=== PATIENT | female | born 1995 | race Caucasian/White ===

== ENCOUNTER 2025-02-27 08:04 | Emergency (ER) | payer OTHER ==
[~2025-02-27] VITALS: Ht 157.5 cm; Wt 81.4 kg
[2025-02-27] MEDS: IBUPROFEN 600 MG TABLET PO ONE (08:26)
[2025-02-27] MEDS: AMOX TR/POT CLAV 875 MG/125 MG TABLET PO ONE (08:26)
[2025-02-27] MEDS ORDERED: NEOM10SO24 AD (08:29)
[2025-02-27] MEDS ORDERED: IBUP-1492 PO (08:29)
[2025-02-27] MEDS ORDERED: AMOX-457 PO (08:29)
[2025-02-27] MEDS: NEOMYCIN/POLYMYXIN B/HYDROCORT 10 ML OTIC SOLUTION AD ONE (09:06)
[2025-02-27 09:13] VITALS: BP 112/74; PULSE 78; RESP 18; TEMP 98.2; O2SAT 100
[2025-02-28] MEDS ORDERED: HYDR-4062 PO (20:04)
== END 2025-02-27 09:14 | disposition home or self-care (01) ==
LOC: EMS 08:10
DX: H60.91 Unspecified otitis externa, right ear (principal); H66.91 Otitis media, unspecified, right ear
CPT/HCPCS: 99284; Z7502; Z7610

== ENCOUNTER 2025-02-28 16:23 | Emergency (ER) | payer OTHER ==
[~2025-02-28] VITALS: Ht 157.5 cm; Wt 81.0 kg
[~2025-02-28 16:23] MED LIST: AMOX-457 PO; IBUP-1492 PO; NEOM10SO24 AD
[2025-02-28] MEDS: HYDROCODONE/ACETAMINOPHEN 5-325 MG TABLET PO ONE (18:40)
[2025-02-28 19:45] VITALS: BP 124/78; PULSE 99; RESP 16; TEMP 99.8; O2SAT 98
[2025-02-28] MEDS ORDERED: HYDR-4062 PO (20:04)
== END 2025-02-28 20:12 | disposition home or self-care (01) ==
LOC: EMS 16:23
DX: H60.91 Unspecified otitis externa, right ear (principal); H66.91 Otitis media, unspecified, right ear; Z79.899 Other long term (current) drug therapy
CPT/HCPCS: 99283